=== PATIENT | female | born 1990 ===

== ENCOUNTER 2016-07-22 08:05 | Emergency (ER) | payer OTHER ==
[2016-07-22 08:22] VITALS: BMI 22.8
[2016-07-22] MEDS ORDERED: Sodium Chloride 0.9% 1,000 ML IV STA (08:55)
--- NOTE | 2016-07-22 09:19 | RAD ---
HISTORY: cough COMPARISON: No prior. FINDINGS: LUNGS: No active pulmonary disease. PLEURA: No significant pleural effusion identified, no pneumothorax apparent. CARDIOVASCULAR: Normal. OSSEOUS STRUCTURES: No significant abnormalities. VISUALIZED UPPER ABDOMEN: Normal. OTHER FINDINGS: None. IMPRESSION: No active disease.
--- NOTE | 2016-07-22 09:23 | ED PDOC ---
Arrival/HPI - General Chief Complaint: Fever Time Seen by Provider: 07/22/16 08:54 Historian: Patient - History of Present Illness Narrative History of Present Illness (Text): 26-year-old female with one-week duration of fevers, chills, body aches, dry nonproductive cough. States that she had a sore throat which has resolved. No relieving or exacerbating factors. Denies headaches, denies photophobia, denies neck pain or back pain. No other complaints. PMD: Dr. Abbott Time/Duration: 1 week Symptom Course: Unchanged Quality: Other Context: Home Past Medical History - Provider Review Nursing Documentation Reviewed: Yes - Psychiatric Hx Substance Use: No Family/Social History - Physician Review Nursing Documentation Reviewed: Yes Family/Social History: Unknown Family HX Smoking Status: Never Smoked Hx Alcohol Use: No Hx Substance Use: No Allergies/Home Meds Allergies/Adverse Reactions: Allergies No Known Allergies Allergy (Verified 07/22/16 08:22) Physical Exam - Physical Exam Narrative Physical Exam (Text): - Review of Systems Constitutional: fever absent: Fatigue, Weight Change Eyes: Normal ENT: denies sore throat, denies tristhmus Respiratory: cough. absent: SOB, Sputum Cardiovascular: absent: Chest Pain, Palpitations, Syncope Gastrointestinal: Normal. absent: Abdominal Pain, Diarrhea, Nausea, Vomiting Genitourinary: Normal. absent: Dysuria, Frequency, Hematuria, vaginal bleeding Musculoskeletal: Arthralgias absent: Back Pain, Neck Pain Skin: no rashes, no erythema Neurological: absent: Focal Weakness Endocrine: Normal Hemo/Lymphatic: Normal Psychiatric: No suicidal or homicidal ideations - Physical exam Patient appears age appropriate, speaking full sentences without difficulty - Systems Exam Head: Present: Atraumatic, Normocephalic Pupils: Present: PERRL Extraocular Muscles: Present: EOMI Conjunctiva: Present: Normal ENT: Erythematous posterior pharynx, No pain with hyoid manipulation, No muffled voice, no floor of mouth pain or elevation Mouth: Present: Moist Mucous Membranes Neck: Present: Normal Range of Motion. No: MIDLINE TENDERNESS, Paraspinal Tenderness Respiratory/Chest: Present: Clear to Auscultation, Good Air Exchange. No: Respiratory Distress, Accessory Muscle Use, Tachypneic Cardiovascular: Present: Regular Rate and Rhythm, Normal S1, S2, Peripheral Pulses Present. No: Murmurs Abdomen: Present: Normal Bowel Sounds, No: Tenderness, Peritoneal Signs, Rebound, Guarding, Distention Back: Present: Normal Inspection. No: Midline Tenderness, Paraspinal Tenderness Upper Extremity: Present: Normal Inspection. No: Cyanosis, Edema Lower Extremity: Present: Normal Inspection. No: Edema Neurological: Present: GCS=15, Speech Normal, cranial nerves II through XII fully intact with no cerebellar abnormality, neuro-sensory fully intact. No focal neurological deficits. Skin: Present: Warm, Dry, Normal Color. No: Rashes Lymphatic: Present: OX3, NI, NC Psychiatric: Present: Alert, Oriented x 3, Normal Insight, Normal Concentration Vital Signs Reviewed: Yes Vital Signs Temp Pulse Resp BP Pulse Ox 07/22/16 11:38 99.8 F H 107 H 16 110/64 96 07/22/16 08:16 102 F H 106 H 18 103/60 100 Temperature: Febrile Blood Pressure: Normal Pulse: Tachycardic Respiratory Rate: Normal Appearance: Positive for: Well-Appearing Pain Distress: None Mental Status: Positive for: Alert and Oriented X 3 Medical Decision Making ED Course and Treatment: 07/22/16 09:23 Impression: 26yo female with fevers, arthralgias, cough. No acute findings on PE Plan: -- toradol, fluids, cxr -- Reassess and disposition Progress Notes: EKG shows NSR at [address]-segment elevations, normal intervals. Interpreted by me. Report Date : 07/22/2016 09:17:44 Procedure: Chest xray Dictator : Manuel Larsen MD IMPRESSION: No active disease. 07/22/16 12:07 On reevaluation patient's fever resolved, patient states that she feels much better and would like to be discharged home. Tolerating PO without any pain or difficulty. Pt states she understands to return to the ER right away for new or worsening symptoms or for inability to f/u with PMD or specialist as instructed. Patient states that she fully agrees with and understands discharge instructions. States that she agrees with the plan and disposition. Verbalized and repeated discharge instructions and plan. I have given the patient opportunity to ask any additional questions. - Lab Interpretations Lab Results: 07/22/16 09:38 07/22/16 09:38 Lab Results 07/22/16 09:38: WBC 4.5, RBC 4.45, Hgb 13.7, Hct 40.1, MCV 90.1, MCH 30.8, MCHC 34.2, RDW 12.3, Plt Count 230, MPV 10.4, Gran % 69.3 H, Lymph % (Auto) 16.6 L, [place] % (Auto) 13.9 H, Eos % (Auto) 0.0 L, Baso % (Auto) 0.2, Gran # 3.09, Lymph # 0.7 L, [place] # 0.6, Eos # 0.0, Baso # 0.01, Sodium 135, Potassium 4.0, Chloride 99, Carbon Dioxide 26, Anion Gap 14, BUN 7, Creatinine 0.8, Est GFR ( Amer) > 60, Est GFR (Non-Af Amer) > 60, Random Glucose 83, Calcium 9.1, Total Bilirubin 0.5, AST 34, ALT 29, Alkaline Phosphatase 76, Total Protein 7.8 , Albumin 4.3, Globulin 3.5, Albumin/Globulin Ratio 1.2 07/22/16 08:39: Urine Color Yellow, Urine Appearance Slight-cloudy, Urine pH 7.0 , Ur Specific [place] 1.015, Urine Protein Trace H, Urine Glucose (UA) Negative , Urine Ketones 15 H, Urine Blood Negative, Urine Nitrate Negative, Urine Bilirubin Negative, Urine Urobilinogen 0.2, Ur Leukocyte Esterase Negative, Urine RBC Negative, Urine WBC 0 - 2, Ur Epithelial Cells 1 - 3, Urine Bacteria Small, Hyaline Casts 0 - 2 - RAD Interpretation Radiology Orders: 07/22/16 08:56 CHEST PORTABLE [RAD] Stat - Medication Orders Current Medication Orders: Discontinued Medications Sodium Chloride (Sodium Chloride 0.9%) 1,000 mls @ 1,000 mls/hr IV .Q1H STA Stop: 07/22/16 09:54 Last Admin: 07/22/16 09:59 Dose: 1,000 MLS/HR eMAR Start Stop Document 07/22/16 09:59 SONI (Rec: 07/22/16 10:00 SONI [id number]) Intravenous Solution Start Date 07/22/16 Start Time 09:59 Ketorolac Tromethamine (Toradol) 15 mg IVP STAT STA Stop: 07/22/16 08:56 Last Admin: 07/22/16 10:00 Dose: 15 MG IVP Administration Document 07/22/16 10:00 SONI (Rec: 07/22/16 10:00 [facility] [id number]) Charges for Administration # of IVP Administrations 1 Disposition/Present on Arrival - Present on Arrival Any Indicators Present on Arrival: No History of DVT/PE: No History of Uncontrolled Diabetes: No Urinary Catheter: No History of Decub. Ulcer: No History Surgical Site Infection Following: None - Disposition Have Diagnosis and Disposition been Completed?: Yes Diagnosis: Fever Disposition: HOME/ ROUTINE Disposition Time: 12:09 Patient Plan: Discharge Patient Problems: Current Active Problems Problem Status Diagnosed Fever Acute Condition: GOOD Discharge Instructions (ExitCare): Upper Respiratory Infection (ED) Additional Instructions: PLEASE RETURN TO THE EMERGENCY DEPARTMENT FOR NEW OR WORSENING SYMPTOMS. RETURN RIGHT AWAY IF YOU CANNOT FOLLOW UP WITH YOUR PRIMARY CARE DOCTOR, CLINIC, OR SPECIALIST IN 1-2 DAYS. Prescriptions: Guaifen/Phenyleph/Acetaminophn [Mucinex Fast-Max Cold & Sinus 325 mg-200 mg-5] 1 tab PO Q6 #1 packet Azithromycin [Zithromax] 250 mg PO DAILY 5 Days Forms: WORK NOTE
[2016-07-22 09:53] LABS: ADD MANUAL DIFF? NO
[2016-07-22 10:02] LABS: BASO # 0.01 K/mm3 (0.0-2.0); BASO % 0.2 % (0.0-3.0); GRAN # 3.09 (1.4-6.5); GRAN % 69.3 % (50.0-68.0); HEMATOCRIT 40.1 % (36.0-48.0); LYMPH # 0.7 (1.2-3.4); LYMPH % 16.6 % (22.0-35.0); MEAN CELL VOLUME 90.1 fL (80.0-105.0); MEAN CORPUSCULAR HEMOGLOBIN 30.8 pg (25.0-35.0); MEAN CORPUSCULAR HGB CONC 34.2 g/dl (31.0-37.0); MEAN PLATELET VOLUME 10.4 fl (7.0-11.0); MONO # 0.6 (0.1-0.6); MONO % 13.9 % (1.0-6.0); PLATELET COUNT 230 10^3/uL (120.0-450.0); RED CELL DISTRIBUTION WIDTH 12.3 % (11.5-14.5); WHITE BLOOD COUNT 4.5 10^3/ul (4.5-11.0)
[2016-07-22 10:06] LABS: ALB/GLOB RATIO 1.2 (1.1-1.8); ALKALINE PHOSPHATASE 76 U/L (38-133); ALT/SGPT 29 U/L (7-56); AST/SGOT 34 U/L (15-39); BILIRUBIN,TOTAL 0.5 mg/dL (0.2-1.3); BLOOD UREA NITROGEN 7 mg/dL (7-21); CALCIUM 9.1 mg/dL (8.4-10.5); CARBON DIOXIDE 26 mmol/L (21-33); CHLORIDE 99 mmol/L (98-107); GFR AFRICAN-AMERICAN > 60; GLUCOSE,RANDOM 83 mg/dL (70-110); SODIUM 135 mmol/L (132-148); TOTAL PROTEIN 7.8 g/dL (5.8-8.3)
[2016-07-22 11:39] VITALS: BP 110/64; PULSE 107; RESP 16; TEMP 99.8; O2SAT 96
[2016-07-22 11:44] LABS: URINE BILIRUBIN NEGATIVE (NEGATIVE); URINE BLOOD NEGATIVE (NEGATIVE); URINE GLUCOSE (UA) NEGATIVE (NEGATIVE); URINE KETONE 15 mg/dL (NEGATIVE); URINE LEUKOCYTE ESTERASE NEGATIVE Leu/uL (NEGATIVE); URINE PROTEIN TRACE mg/dL (<30 mg/dL); URINE UROBILINOGEN 0.2 E.U./dL (<1 E.U./dL)
[2016-07-22 11:46] LABS: URINE APPEARANCE SLIGHT-CLOUDY (CLEAR); URINE COLOR YELLOW (YELLOW)
[2016-07-22 11:56] LABS: URINE BACTERIA SMALL (NEG); URINE RBC NEGATIVE /hpf (0-2); URINE WBC 0 - 2 /hpf (0-6)
--- NOTE | 2016-07-22 12:51 | CARD ---
APPROVED REPORT EKG Measurement Heart [id number] VT [id number] <Conclusion> Sinus rhythm with short VT Otherwise normal ECG
== END 2016-07-22 12:48 | disposition home or self-care (01) ==
LOC: ED 08:05
DX: R50.9 Fever, unspecified (principal)
CPT/HCPCS: 71010; 80053; 81001; 85025; 93005; 96374; 99284; J1885; J7040